=== PATIENT | female | born 1955 | race Caucasian/White ===

== ENCOUNTER → 2016-11-09 | Outpatient (CLI) | payer BC ==
[2016-11-09 13:25] LABS: Anisocytosis Slight; HCT 32.1 % (34.0-46.0); HDW 3.16; HGB 8.8 gm/dL (11.4-16.0); Hypochromasia Marked; MCH 22.6 pg (25.0-35.0); MCHC 27.5 g/dL (31.0-37.0); MCV 82.2 fL (80.0-100.0); Mean Platelet Volume 7.1; Microcytosis Slight; RBC 3.91 m/uL (3.80-5.40); RDW 19.1 % (11.5-15.5); WBC 15.4 k/uL (3.8-10.6)
[2016-11-09 13:51] LABS: ALT 42 U/L (9-52); AST 53 U/L (14-36); Alkaline Phosphatase 171 U/L (38-126); Anion Gap 8 mmol/L; Blood Urea Nitrogen 15 mg/dL (7-17); Calcium 9.3 mg/dL (8.4-10.2); Carbon Dioxide 30 mmol/L (22-30); Chloride 103 mmol/L (98-107); Cholesterol 118 mg/dL (<200); Glucose 97 mg/dL (74-99); HDL Cholesterol 38 mg/dL (40-60); Magnesium 1.7 mg/dL (1.6-2.3); Non-African American GFR(MDRD) >60 (>60 ml/min/1.73 sqM); Phosphorous 4.2 mg/dL (2.5-4.5); Potassium 4.6 mmol/L (3.5-5.1); Sodium 141 mmol/L (137-145); Total Bilirubin 0.4 mg/dL (0.2-1.3); Total Protein 6.6 g/dL (6.3-8.2); Uric Acid 4.2 mg/dL (3.7-7.4)
[2016-11-09 13:58] LABS: Prealbumin 12 mg/dL (18-36)
[2016-11-09 14:56] LABS: Vitamin B12 875 pg/mL (239-931)
[2016-11-09 19:31] LABS: Hemoglobin A1C 6.5 % (4.2-6.1)
== END | disposition home or self-care (01) ==
LOC: LABWHC1 12:47
PROVIDERS: ATTEND Surgery
DX: E44.1 Mild protein-calorie malnutrition (principal); E55.9 Vitamin D deficiency, unspecified; I10 Essential (primary) hypertension; E66.01 Morbid (severe) obesity due to excess calories; E11.9 Type 2 diabetes mellitus without complications
CPT/HCPCS: 36415; 80053; 80061; 82306; 82525; 82607; 82746; 83036; 83735; 84100; 84134; 84207; 84255; 84425; 84443; 84550; 84590; 84630; 85027

== ENCOUNTER 2018-05-11 15:08 | Emergency (ER) | payer BC, OTHER ==
[2018-05-11 15:25] VITALS: BP 145/74; PULSE 104; RESP 18; TEMP 98.5
[2018-05-11] MEDS ORDERED: MORPHINE SULFATE 4 MG/ML SYRINGE IM STA (15:53)
[2018-05-11] MEDS ORDERED: KETOROLAC 60 MG/2 ML VIAL IM STA (15:53)
--- NOTE | 2018-05-11 15:55 | ED ---
General Adult HPI - General Chief complaint: Abdominal Pain Stated complaint: hip & abdominal pain Time Seen by Provider: 05/11/18 15:26 Source: patient, RN notes reviewed, old records reviewed Mode of arrival: wheelchair Limitations: no limitations - History of Present Illness Initial comments: Patient is a 62-year-old female who presents emergency Department today with complaints of right hip pain. Patient states she's had chronic hip pain. Patient states that she is here for a "pain shot". Patient states that she has had no recent falls or trauma. Patient reports that she's been told that she needs to have hip replacement but is unable to do so until she loses weight. Patient states that she has had no dysuria or hematuria. She denies any changes in peripheral paresthesias. She does report chronic leg edema and varicose veins. She states that she wears her legs with Anton wrap, and to help with compression of the chronic edema. - Related Data Home Medications Medication Instructions Recorded Confirmed Allopurinol [Zyloprim] 300 mg PO DAILY 02/03/15 05/11/18 metFORMIN HCL [Glucophage] 500 mg PO BID 02/03/15 05/11/18 Doxepin [SINEquan] 25 mg PO DAILY 12/05/15 05/11/18 Gabapentin [Neurontin] 300 mg PO TID 05/11/18 05/11/18 HYDROcodone/APAP 10-325MG [[place] 1 tab PO TID PRN 05/11/18 05/11/18 10-325] HYDROcodone/APAP 10-325MG [[place] 2 tab PO HS PRN 05/11/18 05/11/18 10-325] Allergies Allergy/AdvReac Type Severity Reaction Status Date / Time No Known Allergies Allergy Verified 05/11/18 15:47 Review of Systems ROS Statement: Those systems with pertinent positive or pertinent negative responses have been documented in the HPI. ROS Other: All systems not noted in ROS Statement are negative. Past Medical History Past Medical History: Diabetes Mellitus, GERD/Reflux, Hypertension History of Any Multi-Drug Resistant Organisms: Unobtainable Past Surgical History: Unable to Obtain Past Anesthesia/Blood Transfusion Reactions: Unable to Obtain Past Psychological History: Unable to Obtain Smoking Status: Former smoker Past Alcohol Use History: Occasional Past Drug Use History: None Reported - Past Family History Mother Family Medical History: Unable to Obtain General Exam - General Exam Comments Initial Comments: Patient is a 62-year-old female. Ambulating with a wheelchair and crutches. Morbidly obese. Patient appears older than stated age. Limitations: no limitations General appearance: alert, in no apparent distress Head exam: Present: atraumatic, normocephalic, normal inspection Eye exam: Present: normal appearance, PERRL, EOMI. Absent: scleral icterus, conjunctival injection, periorbital swelling ENT exam: Present: normal exam, mucous membranes moist Neck exam: Present: normal inspection. Absent: tenderness, meningismus, lymphadenopathy Respiratory exam: Present: normal lung sounds bilaterally. Absent: respiratory distress, wheezes, rales, rhonchi, stridor Cardiovascular Exam: Present: regular rate, normal rhythm, normal heart sounds. Absent: systolic murmur, diastolic murmur, rubs, gallop, clicks GI/Abdominal exam: Present: soft, normal bowel sounds, other (Significant pannus noted). Absent: distended, tenderness, guarding, rebound, rigid Extremities exam: Present: normal inspection, full ROM, normal capillary refill. Absent: tenderness, pedal edema, joint swelling, calf tenderness Back exam: Present: normal inspection Neurological exam: Present: alert Psychiatric exam: Present: normal affect, normal mood Skin exam: Present: warm, dry, intact, normal color. Absent: rash Course Vital Signs 05/11/18 15:22 Temperature 98.5 F Pulse Rate 104 H Respiratory 18 Rate Blood Pressure 145/74 O2 Sat by Pulse 96 Oximetry Medical Decision Making - Medical Decision Making 62-year-old female presents emergency room in today with complaints of right hip pain. She states is chronic. She is here for "a pain shot". Patient has no falls or trauma. She has normal sensation and normal pulses distally. At this time Patient has no other significant complaints. Patient was given 1 dose of Toradol and IM morphine. She does take chronic narcotics and [place]. I discussed that on Mirena will not write her any further pain medication. Discussed that this can be a one-time situation to receive the injection. Patient was adamant about being discharged quickly so that she could be in the emergency department with her daughter who was also being evaluated. Her daughter is mentally challenged and requires her to be at her side. Disposition Clinical Impression: Hip pain, Chronic pain Disposition: HOME SELF-CARE Condition: Good Instructions (If sedation given, give patient instructions): Hip Pain (ED) Additional Instructions: Follow-up with orthopedic and primary care doctor. Return to emergency department if any alarming signs or symptoms occur. Is patient prescribed a controlled substance at d/c from ED?: No Referrals: Harley Lu MD [Primary Care Provider] - 1-2 days Time of Disposition: 15:55
== END 2018-05-11 16:15 | disposition home or self-care (01) ==
LOC: EC 15:08
DX: G89.29 Other chronic pain (principal); M25.551 Pain in right hip; E65 Localized adiposity; E66.01 Morbid (severe) obesity due to excess calories; R60.0 Localized edema; I83.90 Asymptomatic varicose veins of unspecified lower extremity; E11.9 Type 2 diabetes mellitus without complications; Z87.891 Personal history of nicotine dependence; Z79.84 Long term (current) use of oral hypoglycemic drugs; Z79.899 Other long term (current) drug therapy; Z68.43 Body mass index [BMI] 50.0-59.9, adult
CPT/HCPCS: 99284; 96372 ×2; J2270; J1885